=== PATIENT | female | born 1975 | race Two or more races ===

== ENCOUNTER → 2016-11-15 | Outpatient (CLI) | payer OTHER ==
--- NOTE | ~2016-11-15 | MY29 ---
[facility] A Service of [facility] RADIOLOGY TEXT RESULTS PATIENT: KATHRYN HAGAN LOCATION: [facility] : 75 UNIT #: [id number] AGE: [address]: Juan Arzola MD SEX: F ORDER DR: [id number] [facility] [address] [place], [place] [address] [id number] MR#: [id number] Acc #: [id number] NAME: KATHRYN HAGAN : 1975 SEX: F STUDY DATE/TIME: 11/15/2016 12:24 UNIT: [facility] ROOM: STUDY DESCRIPTION: MY [facility] SCREENING W/ CAD BILAT Attending Physician: Juan Arzola M.D. Ordering Physician: Juan Arzola M.D. Primary Care Physician: Juan Arzola M.D. MEDICAL IMAGING REPORT This report is preliminary unless electronic signature is present EXAM Digital screening mammogram, 11/15/2016 HISTORY 41-year-old woman no risk elevation. Annual screening. COMPARISON 04/13/2012, 06/27/2015. Followup diagnostic left mammogram with ultrasound 08/18/2015. FINDINGS Digital imaging of each breast was completed utilizing screening protocol. Review includes FDA-approved CAD device. Breast parenchyma is moderately dense with fibroglandular opacities noted bilaterally. Previously noted small circumscribed nodule left subareolar location is not identified today. I see no suspicious mass characteristics. There are no microcalcifications and no suspicious architectural deformity. IMPRESSION Negative mammogram. Annual screening recommended. Patients over the age of 40 are entered into a reminder system with target due date for the next mammogram. A result letter will also be sent to the patient. BIRADS: 1 Negative Dictated by... Clay Cortez M.D. THIS IS AN ELECTRONICALLY VERIFIED REPORT Clay Cortez M.D. at 11/15/2016 3:00 PM JOCELYN/luz [facility] A Service of [facility] RADIOLOGY TEXT RESULTS PATIENT: KATHRYN HAGAN LOCATION: [facility] : 75 UNIT #: [id number] AGE: [address]: Juan Arzola MD SEX: F ORDER DR: TD: 11/15/2016 14:37 JOB #: [id number] MEDICAL IMAGING REPORT Page 1 of 1 COPY
== END | disposition home or self-care (01) ==
LOC: CWCC 11:59
DX: Z12.31 Encounter for screening mammogram for malignant neoplasm of breast (principal)
CPT/HCPCS: G0202